=== PATIENT | female | born 1950 | race Asian ===

== ENCOUNTER 2016-08-19 13:26 | Emergency (ER) | payer MEDICARE, OTHER ==
[2016-08-19 13:38] VITALS: BP 158/84
--- NOTE | 2016-08-19 14:09 | ED Physician Documentation ---
History of Present Illness - Stated complaint Stated Complaint: FEMALE - Chief complaint Chief Complaint: UTI - Additonal information Additional information: hx from p;t 66 f to ER with dysuria and bit of hematuria no fever, no abd pain, no flank pain, no NV, no vag bleed or dc Review of Systems Constitutional: denies: Fever, Chills GI: denies: Abdominal Pain, Vomiting : reports: Dysuria, Hematuria Musculoskeletal: denies: Back pain PD PAST MEDICAL HISTORY - Past Medical History Past Medical History: Yes Cardiovascular: Hypertension, High cholesterol - Past Surgical History Past Surgical History: Yes General: Cholecystectomy - Present Medications Home Medications: Ambulatory Orders Medication Instructions Recorded Confirmed Aspirin [Miniprin] 81 mg PO DAILY 12/07/12 05/29/14 Simvastatin [Zocor] 20 mg PO DAILY 12/07/12 05/29/14 Alendronate [Fosamax] 70 mg PO 08/19/16 Cephalexin [Keflex] 500 mg PO Q6H #28 capsule 08/19/16 - Allergies Allergies/Adverse Reactions: Allergies Allergy/AdvReac Type Severity Reaction Status Date / Time No Known Drug Allergies Allergy Verified 08/19/16 13:38 - Social History Does the pt smoke?: No Smoking Status: Never smoker Does the pt drink ETOH?: No Does the pt have substance abuse?: No - Immunizations Immunizations are current?: Yes - POLST Patient has POLST: No PD ED PE NORMAL - Vitals Vital signs reviewed: Yes - General General: Alert and oriented X 3 - HEENT HEENT: PERRL - Neck Neck: Supple, no meningeal sign - Cardiac Cardiac: RRR - Respiratory Respiratory: No respiratory distress, Clear bilaterally - Abdomen Abdomen: Soft, Non tender - Back Back: No CVA TTP - Derm Derm: Normal color Results - Vitals Vitals: Vital Signs - 24 hr 08/19/16 13:37 Temperature 36.8 C Heart Rate 72 Respiratory 14 Rate Blood Pressure 158/84 H O2 Saturation 100 Oxygen O2 Source Room air - Labs Labs: Laboratory Tests 08/19/16 13:56 Urine Color STRAW Urine Clarity HAZY Urine pH 5.5 Ur Specific [place] <=1.005 Urine Protein NEGATIVE Urine Glucose (UA) NEGATIVE Urine Ketones NEGATIVE Urine Occult Blood LARGE H Urine Nitrite NEGATIVE Urine Bilirubin NEGATIVE Urine Urobilinogen 0.2 (NORMAL) Ur Leukocyte Esterase SMALL H Urine RBC 0-5 Urine WBC 11-25 H Ur Squamous Epith Cells NONE SEEN Urine Bacteria None Seen Ur Microscopic Review INDICATED Urine Culture Comments INDICATED PD MEDICAL DECISION MAKING - ED course ED course: + leuk est and WBC and no epi and benign abd exam not suggestive of appy etc will tx for UTI Departure - Departure Disposition: 01 Home, Self Care Clinical Impression: UTI (lower urinary tract infection) Condition: Good Instructions: ED UTI Cystitis Female Follow-Up: Tiffany Merino PA-C [Primary Care Provider] - Prescriptions: Cephalexin [Keflex] 500 mg PO Q6H #28 capsule Comments: You do have a bladder infection A culture is being run - if the culture indicates the need to change antibiotics , the ER staff will call you Drink plenty of fluids Please follow up with your PMD for a repeat urine test after completing the antibiotics Return if worse (fever, flank pain, severe abdominal pain, vomiting etc)
[2016-08-19 14:28] LABS: BILIRUBIN,URINE NEGATIVE (NEGATIVE); PH,URINE 5.5 PH (5.0-7.5)
[2016-08-19 14:39] LABS: UA w/ MICROSCOPIC CHARGE YES
[2016-08-19 14:55] LABS: UR CULTURE IF IND INDICATED
== END 2016-08-19 15:22 | disposition home or self-care (01) ==
LOC: ED 13:26
DX: N39.0 Urinary tract infection, site not specified (principal); R31.9 Hematuria, unspecified; I10 Essential (primary) hypertension; Z79.82 Long term (current) use of aspirin
CPT/HCPCS: 81001; 81003; 87086; 99283

== ENCOUNTER 2016-09-12 11:50 | Outpatient (CLI) | payer MEDICARE, OTHER ==
[2016-09-12 20:07] LABS: BILIRUBIN,URINE NEGATIVE (NEGATIVE)
[2016-09-12 20:37] LABS: UR CULTURE IF IND NOT INDICATED; WBC,URINE 0-3 /HPF (0-5)
== END 2016-09-12 11:51 | disposition home or self-care (01) ==
LOC: LAB.WCP 11:50
PROVIDERS: ATTEND Physician Assistant Medical
DX: R31.9 Hematuria, unspecified (principal)
CPT/HCPCS: 81001; 87086

== ENCOUNTER 2016-09-21 08:21 | Outpatient (CLI) | payer MEDICARE, OTHER ==
[2016-09-21 14:54] LABS: BASOPHILS # (AUTO) 0.1 10^3/uL (0.0-0.1); BASOPHILS % (AUTO) 1.2 %; EOSINOPHILS # (AUTO) 0.2 10^3/uL (0.0-0.7); EOSINOPHILS % (AUTO) 3.2 %; HCT - HEMATOCRIT 41.6 % (37.0-47.0); HGB - HEMOGLOBIN 13.8 g/dL (12.0-16.0); LYMPHOCYTES # (AUTO) 1.8 10^3/uL (1.5-3.5); LYMPHOCYTES % (AUTO) 34.5 %; MEAN CORPUSCULAR HEMOGLOBIN 30.5 pg (27.0-31.0); MEAN CORPUSCULAR HGB CONC 33.3 g/dL (32.0-36.0); MEAN CORPUSCULAR VOLUME 91.8 fL (81.0-99.0); MEAN PLATELET VOLUME 7.8 fL (7.9-10.8); MONOCYTES # (AUTO) 0.2 10^3/uL (0.0-1.0); MONOCYTES % (AUTO) 4.1 %; NUCLEATED RED BLOOD CELLS AUTO 0.2 /100WBC; RED BLOOD COUNT 4.53 10^6/uL (4.20-5.40); RED CELL DISTRIBUTION WIDTH 12.8 % (12.0-15.0); UNCORRECTED WHITE BLOOD COUNT 5.2 x10^3/uL; WHITE BLOOD COUNT 5.2 x10^3/uL (4.8-10.8)
[2016-09-21 15:09] LABS: ALBUMIN/GLOBULIN RATIO 1.2 (1.0-2.2); BILIRUBIN,TOTAL 0.7 mg/dL (0.2-1.0); BUN - BLOOD UREA NITROGEN 13 mg/dL (6-20); CALCIUM 9.4 mg/dL (8.5-10.3); CARBON DIOXIDE - CO2 28 mmol/L (21-32); CHLORIDE 104 mmol/L (101-111); CHOL/HDL RATIO 2.4 (<4.4); CHOLESTEROL 185 mg/dL; CREATININE 0.8 mg/dL (0.4-1.0); GFR - MDRD 72 (>89); GLUCOSE 93 mg/dL (70-100); HDL CHOLESTEROL 77 mg/dL; LDL/HDL RATIO 1.1 (<4.4); POTASSIUM 3.5 mmol/L (3.5-5.0); SODIUM 139 mmol/L (135-145); TOTAL PROTEIN 8.2 g/dL (6.7-8.2); TRIGLYCERIDES 109 mg/dL; VLDL CHOLESTEROL 22 mg/dL
[2016-09-21 16:34] LABS: HEMOGLOBIN A1C 0.6 g/dL
== END 2016-09-21 08:22 | disposition home or self-care (01) ==
LOC: LAB.WCP 08:21
PROVIDERS: ATTEND Physician Assistant Medical
DX: Z00.00 Encounter for general adult medical examination without abnormal findings (principal); I10 Essential (primary) hypertension; E78.5 Hyperlipidemia, unspecified; R73.9 Hyperglycemia, unspecified
CPT/HCPCS: 36415; 80053; 80061; 83036; 84443; 85025

== ENCOUNTER 2018-01-31 11:41 | Outpatient (CLI) | payer MEDICARE, OTHER ==
[2018-01-31] MEDS ORDERED: IOPAMIDOL-300 100 ML VIAL IVP ONE ×2 (11:42→12:13)
[2018-01-31] MEDS ORDERED: IOPAMIDOL-300 100 ML VIAL ONE (11:53)
--- NOTE | 2018-01-31 12:38 | CT Report ---
Reason: ABNORMAL FINDING ON DIAGNOSTIC IMAGING OF LUNG Procedure Date: 01/31/2018 Accession Number: [id number] / [id number] Procedure: CT - Chest W/ CPT Code: FULL RESULT: EXAM: CT CHEST EXAM DATE: 01/31/2018 12:09 PM. CLINICAL HISTORY: Abnormal finding on diagnostic imaging of lung. COMPARISONS: CHEST 2 VIEW PA/LAT 01/15/2018 9:26 AM. TECHNIQUE: Routine helical CT imaging was performed through the chest. IV contrast: 80 mL Isovue-300. Reconstructions: Coronal and sagittal. In accordance with CT protocol optimization, one or more of the following dose reduction techniques were utilized for this exam: automated exposure control, adjustment of mA and/or KV based on patient size, or use of iterative reconstructive technique. FINDINGS: Lungs/Pleura: Consolidation is seen in the lingula and right middle lobe sparing other lobes with associated tree-in-bud pattern as well as subtle bronchiectasis and bronchial wall thickening. A few scattered pulmonary nodules measuring 3 mm or less are noted. No pleural effusion or pneumothorax. No lung mass. Mediastinum: Normal. No adenopathy or masses. The heart and great vessels are normal with the exception of scant aortic arch calcifications. Bones: No aggressive osseous lesion is seen. Visualized Abdomen: Unremarkable. Other: None. 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 RADIA
== END 2018-01-31 11:42 | disposition home or self-care (01) ==
LOC: DI 11:41
PROVIDERS: ATTEND Physician Assistant Medical
DX: A31.0 Pulmonary mycobacterial infection (principal); R91.8 Other nonspecific abnormal finding of lung field
CPT/HCPCS: 71260; Q9967

== ENCOUNTER 2018-02-05 08:08 | Outpatient (CLI) | payer MEDICARE, OTHER ==
--- NOTE | 2018-02-06 09:48 | Mammography Report ---
Reason: SCREENING Procedure Date: 02/05/2018 Accession Number: [id number] / [id number] Procedure: KYLE - Screening Mammo w/Jt CPT Code: FULL RESULT: EXAM: Screening Mammo w/Jt DATE: 02/05/2018 8:51 AM CLINICAL HISTORY: Screening encounter. No known risk factors. TECHNIQUE: Bilateral CC and MLO views were obtained. COMPARISON: 08/10/2014 through 04/26/2008. FINDINGS: The breasts demonstrate scattered fibroglandular densities bilaterally. No suspicious masses, clustered microcalcifications, or regions of architectural distortion are identified. IMPRESSION: Negative examination RECOMMENDATION: Routine annual screening unless otherwise clinically indicated. BIRADS CATEGORY 1: Negative STANDARD QUALIFYING STATEMENTS: 1. This examination was not reviewed with the aid of Computer-Aided Detection (CAD). 2. A negative or benign imaging report should not preclude biopsy if clinically suspicious findings are present. 3. Dense breasts may obscure an underlying neoplasm. 4. This examination was reviewed with the aid of 3D breast imaging (tomosynthesis).
== END 2018-02-05 08:09 | disposition home or self-care (01) ==
LOC: DI 08:08
DX: Z12.31 Encounter for screening mammogram for malignant neoplasm of breast (principal)
CPT/HCPCS: 77063; 77067

== ENCOUNTER 2019-05-14 09:01 | Outpatient (CLI) | payer MEDICARE, OTHER ==
--- NOTE | 2019-05-15 10:27 | DEXA Report ---
Reason: OSTEOPOROSIS Procedure Date: 05/14/2019 Accession Number: [id number] / [id number] Procedure: DEX - Dexa Spine and/or Hip CPT Code: Final Report FULL RESULT: EXAM: Dexa Spine and/or Hip DATE: 05/14/2019 10:41 AM CLINICAL HISTORY: OSTEOPOROSIS TECHNIQUE: Dual energy x-ray absorptiometry (DXA) was performed on a Snipi System. Regions measured are the AP Spine, femoral neck, and if needed forearm. COMPARISON: None. In accordance with the International Society for Clinical Densitometry (ISCD) guidelines, data from previous exams may be reanalyzed using current recommendations and techniques. This is done to allow a more accurate basis for comparison with the current study. FINDINGS: The data for the lumbar spine is as follows: BMD (g/cm/cm) T-SCORE Z-SCORE REGION L1 0.946 -1.5 0.7 L2 0.937 -2.2 0.0 L3 1.036 -1.4 0.9 L4 1.092 -0.9 1.3 TOTAL 1.013 -1.4 0.8 NOTE: All evaluable vertebrae are used for classification The data for the hip is as follows: BMD (g/cm/cm) T-SCORE Z-SCORE REGION Neck 0.819 -1.6 0.5 TOTAL 0.954 -0.4 1.4 NOTE: The femoral neck or total proximal femur, whichever is lowest, is used for classification. IMPRESSION: THE WHO CLASSIFICATION BASED ON THE INTERNATIONAL REFERENCE STANDARD IS OSTEOPENIA. THE FRACTURE RISK IS INCREASED. RECOMMENDATION: Patients with diagnosis of osteoporosis or osteopenia should have regular bone mineral density assessment. For those eligible for Medicare, routine testing is allowed once every 2 years. Testing frequency can be increased for patients who have rapidly progressing disease or for those who are receiving medical therapy to restore bone mass. COMMENT: World Health Organization (WHO) definitions for osteoporosis and osteopenia: NORMAL BMD: T-score at -1.0 or higher, fracture risk is low OSTEOPENIA BMD: T-score between -1.0 and -2.5, fracture risk is increased. OSTEOPOROSIS BMD: T-score at -2.5 or lower, fracture risk is high. National Osteoporosis Foundation recommends: 1. Obtain adequate dietary calcium (at least 1200 mg per day) and vitamin D (400-800 international units per day). 2. Participate, as appropriate, in regular weightbearing and muscle-strengthening exercise. 3. Avoid tobacco use and reduce alcohol and caffeine intake. 4. For more detailed information see the website at www.NOF.org.
== END 2019-05-14 09:02 | disposition home or self-care (01) ==
LOC: DI 09:01
PROVIDERS: ATTEND Physician Assistant Medical
DX: M85.89 Other specified disorders of bone density and structure, multiple sites (principal)
CPT/HCPCS: 77080

== ENCOUNTER 2021-03-29 08:00 | Outpatient (CLI) | payer MEDICARE, OTHER ==
[2021-03-29 12:26] LABS: BASOPHILS # (AUTO) 0.1 10^3/uL (0.0-0.1); BASOPHILS % (AUTO) 1.1 %; EOSINOPHILS # (AUTO) 0.2 10^3/uL (0.0-0.7); EOSINOPHILS % (AUTO) 4.4 %; HCT - HEMATOCRIT 40.3 % (37.0-47.0); HGB - HEMOGLOBIN 13.3 g/dL (12.0-16.0); LYMPHOCYTES # (AUTO) 1.3 10^3/uL (1.5-3.5); LYMPHOCYTES % (AUTO) 28.7 %; MEAN CORPUSCULAR HEMOGLOBIN 30.9 pg (27.0-31.0); MEAN CORPUSCULAR VOLUME 93.5 fL (81.0-99.0); MEAN PLATELET VOLUME 9.9 fL (7.9-10.8); MONOCYTES # (AUTO) 0.4 10^3/uL (0.0-1.0); MONOCYTES % (AUTO) 7.9 %; NEUTROPHILS # (AUTO) 2.6 10^3/uL (1.5-6.6); NEUTROPHILS % (AUTO) 57.7 %; PLT - PLATELET COUNT 276 10^3/uL (130-450); RED BLOOD COUNT 4.31 10^6/uL (4.20-5.40); RED CELL DISTRIBUTION WIDTH 12.4 % (12.0-15.0); WHITE BLOOD COUNT 4.6 x10^3/uL (4.8-10.8)
[2021-03-29 12:44] LABS: THYROID STIMULATING HORMONE 2.64 uIU/mL (0.34-5.60)
[2021-03-29 12:48] LABS: ALBUMIN 4.2 g/dL (3.2-5.5); ALBUMIN/GLOBULIN RATIO 1.1 (1.0-2.2); ALKALINE PHOSPHATASE 47 IU/L (42-121); ALT ALANINE AMINOTRANSFERASE 17 IU/L (10-60); AST ASPARTATE AMINOTRANSFERASE 25 IU/L (10-42); BUN - BLOOD UREA NITROGEN 21 mg/dL (6-20); CALCIUM 9.4 mg/dL (8.5-10.3); CARBON DIOXIDE - CO2 28 mmol/L (21-32); CHLORIDE 101 mmol/L (101-111); CHOL/HDL RATIO 2.9 (<4.4); CHOLESTEROL 230 mg/dL; CREATININE 0.8 mg/dL (0.4-1.0); GFR - MDRD 71 (>89); GLUCOSE 98 mg/dL (70-100); HDL CHOLESTEROL 80 mg/dL; LDL CHOLESTEROL,CALCULATED 139 mg/dL; LDL/HDL RATIO 1.7 (<4.4); POTASSIUM 3.6 mmol/L (3.5-5.0); SODIUM 137 mmol/L (135-145); TOTAL PROTEIN 7.9 g/dL (6.7-8.2); TRIGLYCERIDES 57 mg/dL; VLDL CHOLESTEROL 11 mg/dL
== END 2021-03-29 23:59 | disposition home or self-care (01) ==
LOC: LAB.WCP 08:00
PROVIDERS: ATTEND Physician Assistant Medical
DX: I10 Essential (primary) hypertension (principal); E78.5 Hyperlipidemia, unspecified
CPT/HCPCS: 36415; 80053; 80061; 83721; 84443; 85025

== ENCOUNTER 2021-07-05 09:56 | Outpatient (CLI) | payer MEDICARE, OTHER ==
[2021-07-05 12:26] LABS: CHOL/HDL RATIO 2.4 (<4.4); CHOLESTEROL 195 mg/dL; HDL CHOLESTEROL 82 mg/dL; LDL CHOLESTEROL,CALCULATED 93 mg/dL; LDL/HDL RATIO 1.1 (<4.4); TRIGLYCERIDES 99 mg/dL; VLDL CHOLESTEROL 20 mg/dL
== END 2021-07-05 09:57 | disposition home or self-care (01) ==
LOC: LAB.N 09:56
PROVIDERS: ATTEND Physician Assistant Medical
DX: E78.5 Hyperlipidemia, unspecified (principal)
CPT/HCPCS: 36415; 80061; 83721

== ENCOUNTER 2021-12-18 12:33 | Outpatient (CLI) | payer MEDICARE, OTHER ==
--- NOTE | 2021-12-22 09:45 | Mammography Report ---
BILATERAL DIGITAL SCREENING MAMMOGRAM 3D/2D: 12/18/2021 Comparison is made to exams dated: 08/10/2014 mammogram, 03/24/2012 mammogram, and 02/05/2018 mammogram - [facility]. Both breasts are almost entirely fatty (category a/<25% glandular tissue). No significant masses, calcifications, or other findings are seen in either breast. There has been no significant interval change. IMPRESSION: NEGATIVE There is no mammographic evidence of malignancy. A 1 year screening mammogram is recommended. Based on the Tyrer Cuzick model (a risk assessment model) the patients lifetime risk is 3.2% and her 10 year risk is 2.4%. According to the ACR, ACS, and NCCN guidelines, an annual breast MRI exam marilu g with mammogram is recommended if the patients lifetime risk is 20% or greater. This exam was interpreted at Station ID: [id number]. NOTE: For mammograms, a report in lay terms will be sent to the patient. Approximately 15% of breast malignancies will not be visualized mammographically. In the management of a palpable breast mass, a negative mammogram must not discourage biopsy of a clinically suspicious lesion. Electronically Signed By: Flip West M.D. aty/penrad:12/22/2021 07:15:34 ACR BI-RADS Category 1: Negative 3341F PARENCHYMAL PATTERN: (F) - The breast(s) demonstrate(s) diffuse fatty replacement. BI-RADS CATEGORY: (1) - 1 RECOMMENDATION: (ANNUAL) - Recommend routine annual screening mammography. [id number] 1 year screening LATERALITY: (B)
== END 2021-12-18 12:34 | disposition home or self-care (01) ==
LOC: DI.N 12:33
DX: Z12.31 Encounter for screening mammogram for malignant neoplasm of breast (principal)

== ENCOUNTER 2022-12-11 10:38 | Outpatient (CLI) | payer MEDICARE, OTHER ==
[2022-12-11 12:24] LABS: BASOPHILS # (AUTO) 0.1 10^3/uL (0.0-0.1); BASOPHILS % (AUTO) 0.8 %; EOSINOPHILS # (AUTO) 0.2 10^3/uL (0.0-0.7); EOSINOPHILS % (AUTO) 2.7 %; HCT - HEMATOCRIT 41.9 % (37.0-47.0); HGB - HEMOGLOBIN 13.5 g/dL (12.0-16.0); LYMPHOCYTES # (AUTO) 1.9 10^3/uL (1.5-3.5); LYMPHOCYTES % (AUTO) 26.4 %; MEAN CORPUSCULAR HEMOGLOBIN 30.5 pg (27.0-31.0); MEAN CORPUSCULAR HGB CONC 32.2 g/dL (32.0-36.0); MEAN CORPUSCULAR VOLUME 94.8 fL (81.0-99.0); MEAN PLATELET VOLUME 9.9 fL (7.9-10.8); MONOCYTES # (AUTO) 0.4 10^3/uL (0.0-1.0); NEUTROPHILS # (AUTO) 4.6 10^3/uL (1.5-6.6); PLT - PLATELET COUNT 302 10^3/uL (130-450); RED BLOOD COUNT 4.42 10^6/uL (4.20-5.40); RED CELL DISTRIBUTION WIDTH 12.3 % (12.0-15.0); WHITE BLOOD COUNT 7.1 x10^3/uL (4.8-10.8)
[2022-12-11 12:45] LABS: ALBUMIN 4.5 g/dL (3.2-5.5); ALBUMIN/GLOBULIN RATIO 1.3 (1.0-2.2); ALKALINE PHOSPHATASE 57 IU/L (42-121); ALT ALANINE AMINOTRANSFERASE 12 IU/L (10-60); AST ASPARTATE AMINOTRANSFERASE 21 IU/L (10-42); BILIRUBIN,TOTAL 0.5 mg/dL (0.2-1.0); BUN - BLOOD UREA NITROGEN 23 mg/dL (6-20); CALCIUM 9.6 mg/dL (8.5-10.3); CARBON DIOXIDE - CO2 28 mmol/L (21-32); CHLORIDE 105 mmol/L (101-111); CHOL/HDL RATIO 2.2 (<4.4); CHOLESTEROL 187 mg/dL; CREATININE 0.8 mg/dL (0.6-1.3); GFR - MDRD 70 (>89); GLUCOSE 113 mg/dL (74-104); HDL CHOLESTEROL 86 mg/dL; LDL CHOLESTEROL,CALCULATED 85 mg/dL; SODIUM 139 mmol/L (135-145); TOTAL PROTEIN 7.9 g/dL (6.4-8.9); TRIGLYCERIDES 80 mg/dL (48-352); VLDL CHOLESTEROL 16 mg/dL
== END 2022-12-11 10:39 | disposition home or self-care (01) ==
LOC: LAB.N 10:38
PROVIDERS: ATTEND Family Medicine
DX: I10 Essential (primary) hypertension (principal); E78.5 Hyperlipidemia, unspecified
CPT/HCPCS: 36415; 80053; 80061; 83721; 85025